=== PATIENT | male | born 1970 | race Caucasian/White ===

== ENCOUNTER 2023-08-19 20:30 | Inpatient (IN) ==
[2023-08-19 21:15] LABS: Basophils # (auto) 0.07 K/uL (0.00-0.20); Basophils % (auto) 0.7 %; Eosinophils # (auto) 0.21 K/uL (0.00-0.50); Hematocrit (blood only) 46.7 % (42.0-52.0); Hemoglobin 16.6 g/dl (14.0-18.0); Immature Granulocytes # (auto) 0.02 K/uL (0.01-0.20); Immature Granulocytes % (auto) 0.2 %; Lymphocytes # (auto) 4.15 K/uL (1.20-3.40); Lymphocytes % (auto) 39.5 %; Mean Corpuscular Hgb Conc 35.5 g/dL (32.0-36.0); Mean Corpuscular Volume 92.8 fL (80.0-100.0); Mean Platelet Volume 10.6 fL (9.4-12.4); Monocytes % (auto) 7.6 %; Neutrophils # (auto) 5.26 K/uL (1.40-6.50); Platelet Count 170 K/uL (130-400); RDW Coefficient of Variation 12.9 % (11.5-14.5); RDW Standard Deviation 44.3 fL (36.4-46.3); Red Blood Count 5.03 M/uL (4.70-6.10); White Blood Count 10.51 K/ul (4.8-10.8)
--- NOTE | 2023-08-19 21:39 | XRay Report ---
XR chest 1V portable CLINICAL HISTORY: snake bite TECHNIQUE: Single frontal radiograph of the chest was obtained. Comparison: None available at the time of this dictation. FINDINGS: No lines and tubes are seen. The cardiomediastinal silhouette is normal. The lungs are clear. No evid ence of pleural effusion or pneumothorax. IMPRESSION: No acute chest disease. ACT 112: Negative or not required by law. Electronically signed by: Jose Gordon M.D. 08/19/2023 9:38 PM
[2023-08-19 22:03] LABS: Alanine Aminotransferase 16 U/L (7-52); Albumin Globulin Ratio 1.1 (0.9-2); Albumin Level 4.5 gm/dl (3.4-5.0); Alkaline Phosphatase 83 U/L (34-104); Anion Gap 11 (3-11); BUN Creatinine Ratio 18.4 (10-20); Bilirubin,Total 0.5 mg/dl (0.2-1.0); Blood Urea Nitrogen 14 mg/dl (6-23); Calcium 9.3 mg/dl (8.6-10.3); Carbon Dioxide 22 mmol/L (21-32); Chloride 95 mmol/L (98-107); Creatine Kinase 68 U/L (30-223); Creatinine Clr Calc Pharmacy 98.7 ml/min; Est GFR (African American) 121.6 ml/min; Est GFR (Non-African American) 104.9 ml/min; Glucose 85 mg/dl (70-99(Fasting)); Sodium 128 mmol/L (136-145); Total Protein 8.5 gm/dl (6.0-8.3)
[2023-08-19 22:07] LABS: Fibrinogen 340 mg/dl (184-400); Prothrombin Time 10.9 Seconds (9.0-12.0)
[2023-08-19 22:12] LABS: Potassium 3.6 mmol/L (3.5-5.1)
[2023-08-19] MEDS: CROTALIDAE POLYVALENT IMMUNE FAB IV STA (22:19)
[2023-08-19] MEDS: SODIUM CHLORIDE 0.9% IV STA (22:19)
--- NOTE | 2023-08-19 23:21 | History & Physical Report ---
Date of Service August 19, 2023 Assessment & Plan (1) Bite, snake, venomous: (2) Alcohol intoxication: (3) Hyponatremia: Plan Minimus snakebite- Snake antivenom given in the ED Initial laboratories including CBC with differential, chemistry profile, PT/INR/PTT and fibrinogen levels all normal Per poison control, at 6-hour intervals follow CBC with differential, PT/INR and fibrinogen levels. Per poison control, continue antivenom every 6 hours until swelling resolved Admit to monitored bed Alcohol intoxication- AWSS protocol with IV Ativan Thiamine 100 mg IV now and every morning Folic acid 1 mg IV now and every morning Status post 1 L normal saline in the ED NSS + KCl 20 mEq at 100 mL/h x 1 L Hyponatremia/beer potomania- Sodium 128 on admission IV fluids as above, and recheck laboratories in the a.m. History of Present Illness Chief Complaint: The patient presents to the emergency department, intoxicated, with concerns regarding a bite to his right hand that [place] When he looked at his hand, he noted immediate swelling, and later on his noted swelling and discomfort into his right axilla Primary Care Provider: NO PCP The patient is a 52-year-old male with no significant past medical history, does not visit physicians regularly, and presents to the emergency department a painful and swollen right hand, and reports having had a bite by an unknown animal, while [place]. He reports he noted immediate swelling in his right hand, and discomfort, and later reports he has discomfort into his right axilla. He was given snake antivenom while in the ED, and advised to be admitted to the hospital for close monitoring, with labs CBC with differential, PT/INR and fibrinogen levels, and administration of antivenom every 6 hours as recommended by the Poison Control Center Allergies Allergy/AdvReac Type Severity Reaction Status Date / Time No Known Allergies Allergy Unverified 08/19/23 21:56 Home Medications Medication Instructions Recorded Confirmed Type No Known Home Medications 08/19/23 08/19/23 History Past Med/Surg History Problem List (Updated 08/20/23 @ 03:13 by Manpreet De Paz MD) Hyponatremia Alcohol intoxication (Acute) Bite, snake, venomous (Acute) Social History Smoking Status: Current every day smoker Tobacco Type: Cigars Preferred Language: Uzbek Feels Safe at Home: Yes Review of Systems Review of Systems: The patient denies chest pain, palpitations, shortness of breath, dyspnea on exertion, cough, lower extremity swelling, sore throat, fevers, chills, sweats, nausea, vomiting, diarrhea , constipation, abdominal pain, pelvic pain, blood in urine or stool, dysuria, urinary frequency or urgency, lightheadedness, dizziness, headache, memory loss, loss of consciousness, imbalance, focal or generalized weakness, numbness or tingling in left arm or bilateral legs, generalized arthralgias or myalgias, back or neck pain, or night sweats. The review of systems is otherwise negative other than for that already noted above, and at least 10 systems have been reviewed. Physical Exam Physical Exam: The patient is awake, intoxicated, well developed and well nourished, normocephalic and atraumatic, lying in bed and in no acute distress. HEENT--PERRL, EOMI, mucous membranes and oropharynx mildly dry. Neck--supple. No JVD. No bruits. Thyroid normal, trachea midline, no adenopathy. Heart--normal S1 and S2. No murmurs, rubs or gallops. Lungs--clear bilaterally, no respiratory distress, no accessory muscle use. Abdomen--normal bowel sounds and soft. Nontender. Nondistended, no hernias or masses, no organomegaly. Extremities--normal bilateral lower extremities and left upper extremity. There is edema and warmth with decreased range of motion of right hand, with tenderness in right axilla Dermatologic--normal except for above Neurologic--cranial nerves II through XII grossly intact. Rheumatologic--normal range of motion except for right hand and wrist Psychiatric--normal affect. Results & Data Results & Data Vital Signs (Past 12 Hours) Vital Signs Temp Pulse Pulse Resp BP BP Pulse Ox 08/19/23 21:22 90 18 113/91 98 08/19/23 20:35 36.5 C 92 H 18 129/84 97 08/19/23 20:33 86 O2 Del Method 08/19/23 21:22 Room Air 08/19/23 20:35 Room Air 08/19/23 20:33 Laboratory Results Laboratory Results WBC 10.51 K/ul (4.8-10.8) 08/19/23 20:54 RBC 5.03 M/uL (4.70-6.10) 08/19/23 20:54 Hgb 16.6 g/dl (14.0-18.0) 08/19/23 20:54 Hct 46.7 % (42.0-52.0) 08/19/23 20:54 MCV 92.8 fL (80.0-100.0) 08/19/23 20:54 MCH 33.0 pg (25.0-34.0) 08/19/23 20:54 MCHC 35.5 g/dL (32.0-36.0) 08/19/23 20:54 RDW Std Deviation 44.3 fL (36.4-46.3) 08/19/23 20:54 RDW Coeff of Kaitlin 12.9 % (11.5-14.5) 08/19/23 20:54 Plt Count 170 K/uL (130-400) 08/19/23 20:54 MPV 10.6 fL (9.4-12.4) 08/19/23 20:54 Immature Gran % (Auto) 0.2 % 08/19/23 20:54 Neut % (Auto) 50.0 % 08/19/23 20:54 Lymph % (Auto) 39.5 % 08/19/23 20:54 Ocean % (Auto) 7.6 % 08/19/23 20:54 Eos % (Auto) 2.0 % 08/19/23 20:54 Baso % (Auto) 0.7 % 08/19/23 20:54 Neut # (Auto) 5.26 K/uL (1.40-6.50) 08/19/23 20:54 Lymph # (Auto) 4.15 K/uL (1.20-3.40) H 08/19/23 20:54 Ocean # (Auto) 0.80 K/uL (0.11-0.59) H 08/19/23 20:54 Eos # (Auto) 0.21 K/uL (0.00-0.50) 08/19/23 20:54 Baso # (Auto) 0.07 K/uL (0.00-0.20) 08/19/23 20:54 Immature Gran # (Auto) 0.02 K/uL (0.01-0.20) 08/19/23 20:54 PT 10.9 Seconds (9.0-12.0) 08/19/23 21:23 INR 1.0 (0.9-1.1) 08/19/23 21:23 APTT 28 Seconds (21-31) 08/19/23 21:23 PTT Ratio 1.0 08/19/23 21:23 Fibrinogen 340 mg/dl (184-400) 08/19/23 21:23 Sodium 128 mmol/L (136-145) L 08/19/23 20:54 Potassium 3.6 mmol/L (3.5-5.1) 08/19/23 21:23 Chloride 95 mmol/L (98-107) L 08/19/23 20:54 Carbon Dioxide 22 mmol/L (21-32) 08/19/23 20:54 Anion Gap 11 (3-11) 08/19/23 20:54 BUN 14 mg/dl (6-23) 08/19/23 20:54 Creatinine 0.76 mg/dl (0.6-1.4) 08/19/23 20:54 Est Cr Clr Drug Dosing 98.7 ml/min 08/19/23 20:54 Est GFR ( Amer) 121.6 ml/min 08/19/23 20:54 Est GFR (Non-Af Amer) 104.9 ml/min 08/19/23 20:54 BUN/Creatinine Ratio 18.4 (10-20) 08/19/23 20:54 Glucose 85 mg/dl (70-99(Fasting)) 08/19/23 20:54 Calcium 9.3 mg/dl (8.6-10.3) 08/19/23 20:54 Total Bilirubin 0.5 mg/dl (0.2-1.0) 08/19/23 20:54 AST 22 U/L (13-39) 08/19/23 21:23 ALT 16 U/L (7-52) 08/19/23 20:54 Alkaline Phosphatase 83 U/L (34-104) 08/19/23 20:54 Total Creatine Kinase 68 U/L (30-223) 08/19/23 20:54 Total Protein 8.5 gm/dl (6.0-8.3) H 08/19/23 20:54 Albumin 4.5 gm/dl (3.4-5.0) 08/19/23 20:54 Globulin 4.0 gm/dl (2.5-4.0) 08/19/23 20:54 Albumin/Globulin Ratio 1.1 (0.9-2) 08/19/23 20:54 Ethyl Alcohol mg/dL 292.8 mg/dl (<10.0) H 08/19/23 21:23 Impressions Chest X-Ray 08/19/23 20:37 XR chest 1V portable CLINICAL HISTORY: snake bite TECHNIQUE: Single frontal radiograph of the chest was obtained. Comparison: None available at the time of this dictation. FINDINGS: No lines and tubes are seen. The cardiomediastinal silhouette is normal. The lungs are clear. No evidence of pleural effusion or pneumothorax. IMPRESSION: No acute chest disease. ACT 112: Negative or not required by law. Electronically signed by: Jose Gordon M.D. 08/19/2023 9:38 PM Code Status & VTE Plan Code Status Full code VTE Prophylaxis Plan VTE Prophylaxis will be ordered: Yes PG Care Time/CCT Total # of Minutes Spent Total Time Spent with Patient: Total time spent is greater than 50% in coordination of care (as documented) at patient's floor/unit and/or counseling patient: Coding Level of Care Code 66150 INT INP/OBS CARE 3/75MIN Diagnoses Bite, snake, venomous T63.001A Encounter type: initial encounter Injury intent: accidental or unintentional Alcohol intoxication F10.929 Complication of substance-induced condition: with unspecified complication Hyponatremia E87.1 (1) Bite, snake, venomous Encounter type: initial encounter Injury intent: accidental or unintentional Qualified Code(s): T63.001A - Toxic effect of unspecified snake venom, accidental (unintentional), initial encounter (2) Alcohol intoxication Complication of substance-induced condition: with unspecified complication Qualified Code(s): F10.929 - Alcohol use, unspecified with intoxication, unspecified
[2023-08-19] MEDS ORDERED: LORazepam 3 MG in SYRINGE 1.5 ML IV PRN (23:22)
[2023-08-19] MEDS ORDERED: LORazepam 2 MG in SYRINGE 1 ML IV PRN (23:22)
[2023-08-19] MEDS ORDERED: LORazepam 1 MG in SYRINGE 0.5 ML IV PRN (23:22)
[2023-08-19] MEDS ORDERED: Ativan IV Alcohol Withdrawal--Active Protocol IV PRN (23:22)
[2023-08-19 23:49] LABS: Partial Thromboplastin Time 28 Seconds (21-31)
[2023-08-19] MEDS ORDERED: ONDANSETRON INJ 2 MG/ML 2 ML VIAL IV PRN (23:52)
[2023-08-19] MEDS ORDERED: ACETAMINOPHEN 325 MG TAB PO PRN (23:52)
--- NOTE | 2023-08-20 00:10 | Emergency Department Note ---
Impression & Plan Bite, snake, venomous, Alcohol intoxication ED Provider Note CHIEF COMPLAINT: Bite to the right hand HISTORY OF PRESENT ILLNESS: This 52-year-old male patient with no known past medical history who does not see a physician regularly, presents emergency department intoxicated, stating [place]. He states he was drinking beer for most of the day, reached into the woodpile and felt a bite. He does believe it was a snake however is not able to confirm definitively. There was a bystander who advised soaking the hand in alcohol and taking ibuprofen he did this for the better part of an hour and noticed that the hand was quite swollen. Patient contacted 911 as brought in by ambulance. He does complain of some swelling to the wrist and some discomfort in the arm. REVIEW OF SYSTEMS: A review of systems was performed with positives and pertinent negatives listed in the history of present illness. 10 systems were reviewed and are otherwise negative. ALLERGIES: see below MEDICATIONS: see below PMH: see below SOCIAL HISTORY: see below DDx: [place], copperhead, insect bite, rodent bite, injury, fracture, cellulitis among others. PHYSICAL EXAM: Vital signs reviewed. General: Well-appearing 52 yo intoxicated male, in no significant distress. HEENT: No scleral icterus, PERRLA, neck supple. Poor dentition. Cardiovascular: Regular rate and rhythm, no extra sounds. Pulmonary: Clear to auscultation bilaterally, normal work of breathing. Abdomen: Soft, nontender, nondistended, positive bowel sounds. Musculoskeletal: Right hand with significant swelling, limited range of motion and erythema to the wrist. 2 small puncture wounds are noted at the base of the index finger nailbed. Neurologic: Patient awake alert and oriented x 3, speech is clear Skin: Warm, dry, no rash EMERGENCY DEPARTMENT COURSE/MDM: This patient was evaluated and appeared to be in no significant distress. Patient was placed on the frozen food department manager, IV access had been obtained prior to arrival. I discussed the case with poison control who recommended administering CroFab 4 g IV now. Laboratory work including CBC, CHEM panel, fibrinogen, PT/INR, total CK and EKG were obtained per their recommendations. Patient's WBC is normal, fibrinogen is 340, PT/INR are within normal limits and alcohol level is 292. The patient was unclear of his willingness to stay in the hospital however after several discussions with myself and the hospitalist service, he finally agreed. Poison control did call back and they were updated. Patient's hand remains swollen and he complained of some tenderness up into the axilla. Poison control has recommended 2 g of CroFab every 6 hours until symptoms completely resolve and labs remain normal. Patient was able to make arrangements with his brother to take care of his dog and other issues making him anxious about staying in the hospital. At this time he is willing to proceed with the admission. MONITORING: An order for cardiac monitoring was placed and the patient is noted to be in a normal sinus rhythm at 92 beats per minute. RADIOLOGY: X-ray of the right hand to my interpretation reveals soft tissue swelling without acute fracture. Otherwise defer to radiology's over read. Chest x-ray to my interpretation reveals no focal lung consolidation or failure, otherwise defer to radiology. DISPOSITION: Admission I have personally spent greater than 35 minutes of critical care time in the direct management of this patient. This includes bedside care, interpretation of diagnostic studies, and testing, discussion with consultants, patient, and family members, and other required patient management activities. This 35 minutes is in excess of all separately billable procedures. Past Med/Surg History Problem List (Updated 08/20/23 @ 00:10 by Olga James MD) Alcohol intoxication (Acute) Bite, snake, venomous (Acute) Social History Smoking Status: Current every day smoker Tobacco Type: Cigars Preferred Language: Telugu Feels Safe at Home: Yes Allergies Allergies Allergy/AdvReac Type Severity Reaction Status Date / Time No Known Allergies Allergy Unverified 08/19/23 21:56 Home Meds Home Medications Medication Instructions Recorded Confirmed No Known Home Medications 08/19/23 08/19/23 Results & Data (ED) Vital Signs Vital Signs - 24 hr 08/19/23 20:33 08/19/23 20:35 08/19/23 21:22 Temperature 36.5 C Temperature Source Oral Pulse Rate 86 92 H Pulse Rate [Apical] 90 Respiratory Rate 18 18 Respiratory Effort / Characteristics Non-Labored Respiratory Depth Normal Blood Pressure 129/84 Blood Pressure [Right Arm] 113/91 Blood Pressure Mean 99 Blood Pressure Mean [Right Arm] 98 Pulse Oximetry 97 98 Oxygen Delivery Method Room Air Room Air Sepsis Recent Fever Within 48 Hours No Sepsis New/Unexplained Change in Mental Status No Sepsis Action Taken by Nursing No Action Required Home Medications Current Medication List: was personally reviewed by me Laboratory Data Attestation: I reviewed the patient's lab results. 08/19/23 20:54 08/19/23 21:23 Lab Results 08/19/23 08/19/23 Range/Units 20:54 21:23 WBC 10.51 (4.8-10.8) K/ul RBC 5.03 (4.70-6.10) M/uL Hgb 16.6 (14.0-18.0) g/dl Hct 46.7 (42.0-52.0) % MCV 92.8 (80.0-100.0) fL MCH 33.0 (25.0-34.0) pg MCHC 35.5 (32.0-36.0) g/dL RDW Std Deviation 44.3 (36.4-46.3) fL RDW Coeff of Kaitlin 12.9 (11.5-14.5) % Plt Count 170 (130-400) K/uL MPV 10.6 (9.4-12.4) fL Immature Gran % (Auto) 0.2 % Neut % (Auto) 50.0 % Lymph % (Auto) 39.5 % Jennings % (Auto) 7.6 % Eos % (Auto) 2.0 % Baso % (Auto) 0.7 % Neut # (Auto) 5.26 (1.40-6.50) K/uL Lymph # (Auto) 4.15 H (1.20-3.40) K/uL Jennings # (Auto) 0.80 H (0.11-0.59) K/uL Eos # (Auto) 0.21 (0.00-0.50) K/uL Baso # (Auto) 0.07 (0.00-0.20) K/uL Immature Gran # (Auto) 0.02 (0.01-0.20) K/uL PT Cancelled 10.9 INR Cancelled 1.0 APTT 28 (21-31) Seconds PTT Ratio 1.0 Fibrinogen Cancelled 340 Sodium 128 L (136-145) mmol/L Potassium TNP 3.6 Chloride 95 L (98-107) mmol/L Carbon Dioxide 22 (21-32) mmol/L Anion Gap 11 (3-11) BUN 14 (6-23) mg/dl Creatinine 0.76 (0.6-1.4) mg/dl Est Cr Clr Drug Dosing 98.7 ml/min Est GFR ( Amer) 121.6 ml/min Est GFR (Non-Af Amer) 104.9 ml/min BUN/Creatinine Ratio 18.4 (10-20) Glucose 85 (70-99(Fasting)) mg/dl Calcium 9.3 (8.6-10.3) mg/dl Total Bilirubin 0.5 (0.2-1.0) mg/dl AST TNP 22 ALT 16 (7-52) U/L Alkaline Phosphatase 83 (34-104) U/L Total Creatine Kinase 68 (30-223) U/L Total Protein 8.5 H (6.0-8.3) gm/dl Albumin 4.5 (3.4-5.0) gm/dl Globulin 4.0 (2.5-4.0) gm/dl Albumin/Globulin Ratio 1.1 (0.9-2) Ethyl Alcohol mg/dL 292.8 H (<10.0) mg/dl Administered Medications Discontinued Medications Crotalidae Polyvalent Antivenin 4 gm/ Sodium Chloride 322 mls @ 250 mls/hr IV NOW STA Stop: 08/19/23 22:14 Last Admin: 08/19/23 22:19 Dose: 250 mls/hr Documented By: Imaging Data Radiologist's Impression: Chest X-Ray 08/19/23 20:37 XR chest 1V portable CLINICAL HISTORY: snake bite TECHNIQUE: Single frontal radiograph of the chest was obtained. Comparison: None available at the time of this dictation. FINDINGS: No lines and tubes are seen. The cardiomediastinal silhouette is normal. The lungs are clear. No evidence of pleural effusion or pneumothorax. IMPRESSION: No acute chest disease. ACT 112: Negative or not required by law. Electronically signed by: Jose Gordon M.D. 08/19/2023 9:38 PM Discharge Plan Visit Data Chief Complaint: Bite Stated Complaint: Snake Bite ED Provider: Olga James Discharge Problem: Bite, snake, venomous, Alcohol intoxication Discharge Instructions Interventions: ED Discharge Assessment Last Done: 08/19/23 23:52 Discharge Problem: Bite, snake, venomous Qualifiers: Encounter type: initial encounter Injury intent: accidental or unintentional Q ualified Code(s): T63.001A - Toxic effect of unspecified snake venom, accidental (unintentional), initial encounter Alcohol intoxication Qualifiers: Complication of substance-induced condition: with unspecified complication Q ualified Code(s): F10.929 - Alcohol use, unspecified with intoxication, unspecified
[2023-08-20] MEDS: THIAMINE HCL 100 MG in SYRINGE 9 ML IV STA (00:18)
[2023-08-20] MEDS: NSS + 20MEQ KCL 20 MEQ/1,000 ML BAG IV SCH (00:18)
[2023-08-20] MEDS: FOLIC ACID 1 MG in SYRINGE 9.8 ML IV STA (00:18)
[2023-08-20] MEDS: SODIUM CHLORIDE 0.9% IV SCH (05:00)
[2023-08-20] MEDS: [UNRECOGNIZED DRUG - OTHER] IV SCH (05:00)
[2023-08-20 05:15] LABS: Basophils # (auto) 0.06 K/uL (0.00-0.20); Basophils % (auto) 0.5 %; Eosinophils # (auto) 0.23 K/uL (0.00-0.50); Hematocrit (blood only) 45.6 % (42.0-52.0); Hemoglobin 15.7 g/dl (14.0-18.0); Immature Granulocytes # (auto) 0.03 K/uL (0.01-0.20); Immature Granulocytes % (auto) 0.3 %; Lymphocytes % (auto) 14.9 %; Mean Corpuscular Hemoglobin 32.5 pg (25.0-34.0); Mean Corpuscular Hgb Conc 34.4 g/dL (32.0-36.0); Mean Corpuscular Volume 94.4 fL (80.0-100.0); Mean Platelet Volume 10.9 fL (9.4-12.4); Monocytes # (auto) 0.99 K/uL (0.11-0.59); Monocytes % (auto) 8.7 %; Neutrophils # (auto) 8.42 K/uL (1.40-6.50); Neutrophils % (auto) 73.6 %; Platelet Count 174 K/uL (130-400); RDW Standard Deviation 44.9 fL (36.4-46.3); Red Blood Count 4.83 M/uL (4.70-6.10); White Blood Count 11.43 K/ul (4.8-10.8)
[2023-08-20 05:27] LABS: Albumin Globulin Ratio 1.2 (0.9-2); BUN Creatinine Ratio 13.8 (10-20); Bilirubin,Total 0.6 mg/dl (0.2-1.0); Calcium 8.6 mg/dl (8.6-10.3); Creatinine Clr Calc Pharmacy 115.5 ml/min; Est GFR (African American) 129.6 ml/min; Est GFR (Non-African American) 111.9 ml/min; Globulin 3.4 gm/dl (2.5-4.0); Magnesium 1.9 mg/dl (1.7-2.4); Potassium 3.8 mmol/L (3.5-5.1); Total Protein 7.4 gm/dl (6.0-8.3)
[2023-08-20 05:45] LABS: Fibrinogen 320 mg/dl (184-400); Partial Thromboplastin Time 27 Seconds (21-31); Prothrombin Time 10.8 Seconds (9.0-12.0)
--- NOTE | 2023-08-20 08:46 | XRay Report ---
XR hand RT min 3V routine CLINICAL HISTORY: snake bite TECHNIQUE: 3 views of the right hand were obtained. Comparison: None available at the time of this dictation. FINDINGS: There is no evidence of an acute fracture. Joint spaces are well-preserved. Soft tissue swelling is s een. IMPRESSION: Soft tissue swelling is seen without evidence of underlying bony abnormality. ACT 112: Negative or not required by law. Electronically signed by: Jose Gordon M.D. 08/20/2023 8:44 AM
[2023-08-20] MEDS: THIAMINE HCL 100 MG in SYRINGE 9 ML IV SCH (08:50)
[2023-08-20] MEDS: FOLIC ACID 1 MG in SYRINGE 9.8 ML IV SCH (08:50)
[2023-08-20] MEDS: oxyCODONE HCL IR 5 MG TAB (IMMEDIATE RELEASE) PO PRN (09:24)
[2023-08-20 10:36] LABS: Basophils # (auto) 0.06 K/uL (0.00-0.20); Basophils % (auto) 0.7 %; Eosinophils # (auto) 0.17 K/uL (0.00-0.50); Eosinophils % (auto) 1.9 %; Hematocrit (blood only) 45.5 % (42.0-52.0); Hemoglobin 15.8 g/dl (14.0-18.0); Immature Granulocytes # (auto) 0.02 K/uL (0.01-0.20); Immature Granulocytes % (auto) 0.2 %; Lymphocytes # (auto) 1.52 K/uL (1.20-3.40); Lymphocytes % (auto) 16.8 %; Mean Corpuscular Hemoglobin 32.6 pg (25.0-34.0); Mean Corpuscular Hgb Conc 34.7 g/dL (32.0-36.0); Mean Platelet Volume 10.7 fL (9.4-12.4); Monocytes # (auto) 0.99 K/uL (0.11-0.59); Neutrophils # (auto) 6.27 K/uL (1.40-6.50); Neutrophils % (auto) 69.4 %; Platelet Count 163 K/uL (130-400); RDW Coefficient of Variation 13.1 % (11.5-14.5); RDW Standard Deviation 44.7 fL (36.4-46.3); Red Blood Count 4.84 M/uL (4.70-6.10); White Blood Count 9.03 K/ul (4.8-10.8)
[2023-08-20 10:43] LABS: Fibrinogen 333 mg/dl (184-400); Prothrombin Time 10.9 Seconds (9.0-12.0)
--- NOTE | 2023-08-20 11:13 | Hospitalist Progress Note ---
Date of Service August 20, 2023 Assessment & Plan (1) Bite, snake, venomous: (2) Alcohol intoxication: (3) Hyponatremia: Plan Pt is a 52 yo right-hand dominant male with no significant past med hx who presents to the hospital on 08/18 for a presumed snake bite to the right hand from moving wood from a wood pile, also noted to be intoxicated on admission. #Venomous snakebite - Snake antivenom given in the ED - Initial laboratories including CBC with differential, chemistry profile, PT/INR/PTT and fibrinogen levels all normal - will continue to monitor swelling for signs of compartment syndrome/neurovascular compromise - called poison control today; recommend 3 doses total of antivenom (on third dose now), monitor until tomorrow, then if stable still can D/C with pcp f/u Tuesday/Tuesday with repeat labs Tuesday/Tuesday #Alcohol intoxication - alcohol level on admission 293 - continue AWSS protocol with IV Ativan, none given overnight - Thiamine 100 mg IV qam - Folic acid 1 mg IV qam #Hyponatremia/beer potomania, improving - Sodium 128 on admission, improved to 135 today VTE ppx: deferred in the setting of acute venomous bite wound while trending coag studies Admission and Anticipated Discharge Date Admission Date: August 19, 2023 Supervising Physician Co-Signing Physician Notes Patient seen and examined, chart reviewed, case discussed with Dr. March and I agree with the assessment and plan as above except as otherwise noted Labs and images reviewed 52-year-old male who had a snakebite evening of 08/18 while moving wood and the wood pile, did not observe the snake however presented with rapidly worsening swelling of the hand and tracking erythema. Patient was started on cortalidae antivenin. Exam stable morning of 08/19. See photos below. Discussed with poison control. No coagulopathy is present, no leukocytosis, fibrinogen normal, no signs of compartment syndrome with cap refill and radial pulse intact, and no evidence of rhabdo/CK is normal. He has completed 3 doses of antivenom. May hold additional doses of antivenom and follow for the next 12 hours. If stable or improving 08/20 may progress to outpatient with outpatient reevaluation exams within 24-48 hours. Sensation soft touch is intact at time of visit. Agree with assessment and management above. Monitor closely for superimposed cellulitis. No fever, no leukocytosis overnight Subjective Pt is a 52 yo right-hand dominant male with no significant past med hx who presents to the hospital on 08/18 for a presumed snake bite to the right hand from moving wood from a wood pile, also noted to be intoxicated on admission. Today, pt states his hand is still very swollen and painful, about the same as last night maybe a bit more painful. He states he does not really want to be here but does note he is right handed and does understand there are risks associated with leaving early. He states the main reason he wants to leave this morning is that he would like to go outside and smoke. When asked about if he would like a nicotine patch, he states it is not that he is craving nicotine he just wants to have a smoke. He states he works with his hands a lot and has multiple nails stuck in his hands and lots of scrapes and cuts of his hands before with no prior issues. He does, however, note that one of his friends recently had to have some fingers amputated and he would definitely like to keep all 10 fingers. He denies chest pain, shortness of breath, difficulty breathing or swallowing, or headaches or blurry vision at this time. He states he never really actually saw what bit him. Review of Systems 2 Review of Systems: Per HPI. Physical Exam 2 Physical Exam: General: Alert and oriented, no acute distress, HEENT: Normocephalic, moist oral mucosa, Cardio: Regular rate and rhythm, no murmur, Resp: Lungs clear to auscultation b/l, no wheezes or rhonchi, no increased resp effort GI: Soft and nontender, Skin: Warm, pink, dry, Extremities: R hand with significant swelling and with large blood filled blisters on his R index finger with some erythema of the finger as well, tenderness noted to palpation, there is also an area of redness proximal to the elbow on the inner surface of the upper arm of the R side, both hands are dirty with dirt and debris noted under the nails Results & Data Results & Data Vital Signs (Past 12 Hours) Vital Signs Pulse Pulse Resp BP Pulse Ox O2 Del Method O2 Del Method 08/20/23 10:30 65 14 115/70 94 Room Air 08/20/23 10:00 77 14 125/85 97 Room Air 08/20/23 09:30 76 14 138/91 97 Room Air 08/20/23 09:27 Room Air 08/20/23 08:30 74 18 142/88 H 97 Room Air 08/20/23 08:00 72 14 120/76 96 Room Air 08/20/23 07:30 65 14 115/78 95 Room Air 08/20/23 07:05 68 08/20/23 07:00 74 16 109/75 97 Room Air 08/20/23 06:00 78 16 106/66 96 08/20/23 05:00 75 20 133/79 96 Room Air 08/20/23 05:00 79 15 109/74 95 Nasal Cannula 08/20/23 03:00 81 14 140/93 97 Room Air 08/20/23 02:00 81 15 135/78 98 08/20/23 01:00 79 15 111/74 96 Room Air 08/20/23 00:00 78 18 97/61 L 92 Room Air O2 Flow Rate 08/20/23 10:30 08/20/23 10:00 08/20/23 09:30 08/20/23 09:27 08/20/23 08:30 08/20/23 08:00 08/20/23 07:30 08/20/23 07:05 08/20/23 07:00 08/20/23 06:00 08/20/23 05:00 08/20/23 05:00 3 08/20/23 03:00 08/20/23 02:00 08/20/23 01:00 08/20/23 00:00 Resident Activity Tracking Resident Involvement: Resident Care Provided Care Provided: Adult Hospital Medicine (1) Bite, snake, venomous Encounter type: initial encounter Injury intent: accidental or unintentional Qualified Code(s): T63.001A - Toxic effect of unspecified snake venom, accidental (unintentional), initial encounter (2) Alcohol intoxication Complication of substance-induced condition: with unspecified complication Qualified Code(s): F10.929 - Alcohol use, unspecified with intoxication, unspecified
--- NOTE | 2023-08-20 14:12 | Billing Data ---
Date of Service August 20, 2023 Coding Level of Care Code 23967 SUB INP/OBS CARE MIN
[2023-08-20 15:56] LABS: Basophils # (auto) 0.07 K/uL (0.00-0.20); Basophils % (auto) 0.7 %; Eosinophils % (auto) 3.2 %; Hemoglobin 15.2 g/dl (14.0-18.0); Immature Granulocytes # (auto) 0.02 K/uL (0.01-0.20); Immature Granulocytes % (auto) 0.2 %; Lymphocytes # (auto) 2.28 K/uL (1.20-3.40); Lymphocytes % (auto) 24.4 %; Mean Corpuscular Hemoglobin 32.5 pg (25.0-34.0); Mean Corpuscular Hgb Conc 33.8 g/dL (32.0-36.0); Mean Corpuscular Volume 96.2 fL (80.0-100.0); Mean Platelet Volume 10.7 fL (9.4-12.4); Monocytes # (auto) 1.45 K/uL (0.11-0.59); Monocytes % (auto) 15.5 %; Neutrophils # (auto) 5.24 K/uL (1.40-6.50); Platelet Count 162 K/uL (130-400); RDW Coefficient of Variation 13.2 % (11.5-14.5); RDW Standard Deviation 46.4 fL (36.4-46.3); Red Blood Count 4.68 M/uL (4.70-6.10); White Blood Count 9.36 K/ul (4.8-10.8)
[2023-08-20 16:29] LABS: Fibrinogen 347 mg/dl (184-400)
[2023-08-20] MEDS: SODIUM CHLORIDE 0.9% IV ONE (17:32)
[2023-08-20] MEDS: [UNRECOGNIZED DRUG - OTHER] IV ONE (17:32)
[2023-08-20] MEDS ORDERED: [UNRECOGNIZED DRUG - OTHER] IV SCH (23:00)
[2023-08-20] MEDS ORDERED: SODIUM CHLORIDE 0.9% IV SCH (23:00)
[2023-08-20 23:06] LABS: Basophils # (auto) 0.05 K/uL (0.00-0.20); Basophils % (auto) 0.5 %; Eosinophils # (auto) 0.39 K/uL (0.00-0.50); Eosinophils % (auto) 4.1 %; Hematocrit (blood only) 44.4 % (42.0-52.0); Immature Granulocytes # (auto) 0.02 K/uL (0.01-0.20); Immature Granulocytes % (auto) 0.2 %; Lymphocytes # (auto) 2.47 K/uL (1.20-3.40); Lymphocytes % (auto) 26.1 %; Mean Corpuscular Hemoglobin 32.6 pg (25.0-34.0); Mean Corpuscular Hgb Conc 33.8 g/dL (32.0-36.0); Mean Corpuscular Volume 96.5 fL (80.0-100.0); Mean Platelet Volume 10.5 fL (9.4-12.4); Monocytes # (auto) 1.25 K/uL (0.11-0.59); Monocytes % (auto) 13.2 %; Neutrophils # (auto) 5.27 K/uL (1.40-6.50); Neutrophils % (auto) 55.9 %; Platelet Count 150 K/uL (130-400); RDW Coefficient of Variation 13.1 % (11.5-14.5); RDW Standard Deviation 46.9 fL (36.4-46.3); White Blood Count 9.45 K/ul (4.8-10.8)
[2023-08-20 23:36] LABS: Fibrinogen 361 mg/dl (184-400); Prothrombin Time 10.8 Seconds (9.0-12.0)
[2023-08-21 04:44] LABS: Basophils # (auto) 0.06 K/uL (0.00-0.20); Basophils % (auto) 0.7 %; Eosinophils # (auto) 0.36 K/uL (0.00-0.50); Eosinophils % (auto) 4.1 %; Hematocrit (blood only) 43.7 % (42.0-52.0); Immature Granulocytes # (auto) 0.02 K/uL (0.01-0.20); Immature Granulocytes % (auto) 0.2 %; Lymphocytes # (auto) 2.48 K/uL (1.20-3.40); Lymphocytes % (auto) 28.6 %; Mean Corpuscular Hgb Conc 34.3 g/dL (32.0-36.0); Mean Platelet Volume 10.7 fL (9.4-12.4); Monocytes # (auto) 1.15 K/uL (0.11-0.59); Monocytes % (auto) 13.2 %; Neutrophils # (auto) 4.61 K/uL (1.40-6.50); Neutrophils % (auto) 53.2 %; Platelet Count 135 K/uL (130-400); RDW Coefficient of Variation 12.9 % (11.5-14.5); Red Blood Count 4.55 M/uL (4.70-6.10); White Blood Count 8.68 K/ul (4.8-10.8)
[2023-08-21 05:01] LABS: Albumin Globulin Ratio 1.2 (0.9-2); Albumin Level 3.7 gm/dl (3.4-5.0); BUN Creatinine Ratio 15.3 (10-20); Bilirubin,Total 1.2 mg/dl (0.2-1.0); Creatinine Clr Calc Pharmacy 104.2 ml/min; Est GFR (African American) 124.3 ml/min; Est GFR (Non-African American) 107.3 ml/min; Globulin 3.1 gm/dl (2.5-4.0); Magnesium 1.8 mg/dl (1.7-2.4); Potassium 3.8 mmol/L (3.5-5.1); Total Protein 6.8 gm/dl (6.0-8.3)
[2023-08-21 05:18] LABS: Fibrinogen 369 mg/dl (184-400); Partial Thromboplastin Time 26 Seconds (21-31); Prothrombin Time 10.9 Seconds (9.0-12.0)
--- NOTE | 2023-08-21 09:13 | Discharge Summary ---
Date of Service August 21, 2023 Admission HPI Per Admitting Provider The patient is a 52-year-old male with no significant past medical history, does not visit physicians regularly, and presents to the emergency department a painful and swollen right hand, and reports having had a bite by an unknown animal, [place]. He reports he noted immediate swelling in his right hand, and discomfort, and later reports he has discomfort into his right axilla. He was given snake antivenom while in the ED, and advised to be admitted to the hospital for close monitoring, with labs CBC with differential, PT/INR and fibrinogen levels, and administration of antivenom every 6 hours as recommended by the Poison Control Center Admission Exam Per Admitting Provider The patient is awake, intoxicated, well developed and well nourished, normocephalic and atraumatic, lying in bed and in no acute distress. HEENT--PERRL, EOMI, mucous membranes and oropharynx mildly dry. Neck--supple. No JVD. No bruits. Thyroid normal, trachea midline, no adenopathy. Heart--normal S1 and S2. No murmurs, rubs or gallops. Lungs--clear bilaterally, no respiratory distress, no accessory muscle use. Abdomen--normal bowel sounds and soft. Nontender. Nondistended, no hernias or masses, no organomegaly. Extremities--normal bilateral lower extremities and left upper extremity. There is edema and warmth with decreased range of motion of right hand, with tenderness in right axilla Dermatologic--normal except for above Neurologic--cranial nerves II through XII grossly intact. Rheumatologic--normal range of motion except for right hand and wrist Psychiatric--normal affect. Principal Diagnosis Venomous bite Discharge Exam General: Alert and oriented, no acute distress, agitated today HEENT: Normocephalic, moist oral mucosa, Cardio: Regular rate and rhythm, Resp: No increased resp effort, no resp distress Skin: Warm, pink, dry, Extremities: R hand with significant swelling that has worsened in R index finger with progression of blister on the inner surface of index finger all the way along the edge of the finger that is tense, capillary refill is preserved, erythema areas of hand and upper arm have improved since yesterday, both hands are dirty with dirt and debris noted under the nails Discharge Data Allergies Allergy/AdvReac Type Severity Reaction Status Date / Time No Known Allergies Allergy Unverified 08/19/23 21:56 Consultations 08/19/23 23:35 ED Decision to Admit Stat Hospital Course (1) Bite, snake, venomous: (2) Alcohol intoxication: (3) Hyponatremia: Plan Pt is a 52 yo right-hand dominant male with no significant past med hx who presents to the hospital on 08/18 for a presumed snake bite to the right hand from moving wood from a wood pile, also noted to be intoxicated on admission. #Venomous snakebite - loading dose of crotalidae antiven given in the ED followed by 3 doses of antivenom for 4 total doses, last dose 08/19 at 5pm - labs including CBC, PT/INR/PTT have remained stable, did have total bili increased from 0.6 yesterday to 1.2 today - poison control recommended 4 doses total antivenom and observation for 18 hours once swelling has stabilized - pt seen this morning and explained poison controls recommendation and concern over interval increase in swelling and blistering of his R index finger and explained risks of leaving including further damage to his hand that could result in necrosis and ultimately loss of his index finger or hand in general, pt states he understands these risks but does not care because he has to go to work tomorrow and is tired of being in the hospital at this point, he states he is going to leave regardless of what we say this morning and that he intends to pop the large blisters since we will not do it here due to risk of infection, so his hand is more comfortable so that he can go back to continuing to work, ultimately pt did decide to leave AMA - was given tetanus vaccine prior to discharge #Alcohol intoxication - alcohol level on admission 293 - started on AWSS protocol with IV Ativan, none given throughout stay but question if some of his agitation here could have been alcohol related, unclear of chronic alcohol use as pt was largely unwilling to talk about history and states he just wanted his hand treated and to leave #Hyponatremia/beer potomania, improved - Sodium 128 on admission, improved to 134 today Total Time Total Time Spent Total Time Spent (In Minutes): As per attending attestation Discharge Plan Discharge Items Patient Disposition: Against Medical Advice Reason For Visit: SNAKE BITE RUE Activity: As commented below Activity Comment: Pt does woodworking, framing, stated to pt he may have difficulty working. Non-emergency contact: Primary Care Provider Follow-up/Referrals: PCP,NO [Primary Care Provider] - Pending Studies at Discharge: No Stand-Alone Forms: My [facility] Jammcard, Smoking Cessation Medications and DC Order Prescriptions: No Action No Known Home Medications Admission Data Admit Date/Time: 08/19/23 23:18 Attending Provider: Edmundo Brito Admit Provider: Manpreet De Paz Primary Care Provider: PCP,HERNAN Other Providers: Manpreet De Paz Supervising Physician Co-Signing Physician Notes Patient seen and examined, chart reviewed, case discussed with Dr. March. Agree with her assessment and management except as otherwise noted. César was seen at the bedside this morning, notified staff that he wished to leave AGAINST MEDICAL ADVICE. He expresses frustration over the swelling of his hand and reports he "has things to do". On exam his right index finger is with increased blistering along the medial aspect, and slightly increased swelling compared to evening prior. There is no erythema, and erythema at the proximal medial upper arm is receding from demarcated lines. Sensation is intact to soft touch in right radial pulse is intact to palpation, cap refill is intact in the fingertips however patient is unable to flex or extend his index finger due to swelling and still has some discomfort in the finger Patient has received 4 total doses of antivenom, and is being followed by poison control. Additional antivenom is not currently recommended however patient was advised that he is recommended to be monitored until the swelling/edema peaks and then subsequently for 18-24 hours. Reviewed extensively the risks of his condition and leaving AMA including but not limited to vascular compromise, compartment syndrome, development of infection, worsening tissue destruction, development of coagulopathy,. Especially stated to patient that where these develop they could lead to permanent and irreversible damage including potential loss/amputation of his dominant hand/limb. Patient reports he understands these risks, but would like to leave AMA "bring me the paperwork ". Asked patient if there was anything that could be done to make him more comfortable or remain in the hospital for further observation, to which he replied that there was not and he wanted the paperwork to leave AMA. Patient did receive tetanus booster during admission. Subsequently was discharged AMA. Resident Activity Tracking Resident Involvement: Resident Care Provided Care Provided: Adult Hospital Medicine
[2023-08-21] MEDS: DIPHTHER/TETAN/PERTUS Vaccine (Tdap, Adol/Adult) 0.5mL IM ONE (09:15)
--- NOTE | 2023-08-21 11:36 | Billing Data ---
Date of Service August 21, 2023 Coding Level of Care Code 49898 INP/OBS DISCH >30 MIN Time Spent (min) 45 Comment Time spent 45 minutes including counseling on the risks of AMA discharge and direct care
--- NOTE | 2023-08-23 10:49 | Electrocardiogram Report ---
Test Reason : Blood Pressure : / mmHG Vent. Rate : 086 BPM Atrial Rate : 086 BPM P-R Int : 158 ms QRS Dur : 078 ms QT Int : 362 ms P-R-T Axes : 082 086 073 degrees QTc Int : 433 ms Normal sinus rhythm Possible Left atrial enlargement Abnormal ECG No previous ECGs available Confirmed by Tony Fraser ([id number] on 08/23/2023 10:48:57 AM Referred By: REFERRED SELF Confirmed By:Terrance Fraser
== END 2023-08-21 10:50 | disposition left against medical advice (07) | DRG 918 ==
LOC: ED 20:30 → SUATTDRO 23:18 → EDINP 23:18
DX: F17.290 Nicotine dependence, other tobacco product, uncomplicated; M79.89 Other specified soft tissue disorders; F10.929 Alcohol use, unspecified with intoxication, unspecified; Y99.8 Other external cause status; Y93.H2 Activity, gardening and landscaping; Y92.828 Other wilderness area as the place of occurrence of the external cause; E87.1 Hypo-osmolality and hyponatremia; Z23 Encounter for immunization; L53.9 Erythematous condition, unspecified; S60.420A Blister (nonthermal) of right index finger, initial encounter; T63.001A Toxic effect of unspecified snake venom, accidental (unintentional), initial encounter; Y90.9 Presence of alcohol in blood, level not specified